=== PATIENT | male | born 1945 ===

== ENCOUNTER 2025-02-06 00:52 | Outpatient (CLI) | payer OTHER, SELFPAY ==
--- NOTE | 2025-02-06 12:30 | DI.US_ITS ---
APPROVED REPORT EXAM: Comprehensive 2D, Doppler, and color-flow Echocardiogram Patient Location: Out-Patient Litigation Support Analyst: Ricardo Burgos RDCS (AE) Indications: CAD Other Information Study Quality: Adequate Conclusion Normal left ventricular wall thickness and chamber size. EF is 60%. Wall motion is normal Normal right ventricular size and function Both atria are normal in size Aortic valve is mildly sclerotic and trileaflet without stenosis or regurgitation Mild mitral annular calcification. Mild mitral regurgitation Estimated right ventricular systolic pressure is 34 mmHg Wall motion Left Ventricle The left ventricle is normal size. The left ventricular systolic function is normal. The left ventric ular ejection fraction is within the normal range. There is normal left ventricular wall thickness. T here is normal LV segmental wall motion. There is no ventricular septal defect visualized. LVEF is 60 %. Right Ventricle The right ventricle is normal size. The right ventricular systolic function is normal. Atria The left atrium size is normal. The right atrium size is normal. The interatrial septum is intact wit h no evidence for an atrial septal defect. Aortic Valve The aortic valve is mildly sclerotic. Aortic valve is trileaflet. There is no aortic valvular stenosi s. No aortic regurgitation is present. Mitral Valve Mild mitral annular calcification. No evidence of mitral valve stenosis. Mild mitral regurgitation. Tricuspid Valve The tricuspid valve is normal in structure. There is no tricuspid valve stenosis. Trace tricuspid reg urgitation. The RVSP is 33.7 mmHg. Pulmonic Valve The pulmonary valve is normal in structure. There is no pulmonic valvular stenosis. There is no pulmo ashley valvular regurgitation. Great Vessels The aortic root is normal in size. The ascending aorta is normal in size. Aortic arch is normal in ca liber. IVC is normal in size and collapses >50% with inspiration. Pericardium There is no pericardial effusion. 2D Dimensions IVSD d PLAX 0.69 cm M: 0.6-1.2 Ao Root d 2.98 cm M: 3.1 - 3.7 LVPW d PLAX 0.74 cm M: 0.6 - 1.2 Ao Asc Diam d 3.33 cm M: 2.6 - 3.4 LVID d PLAX 5.05 cm M: 4.2 - 5.8 LVDs 3.34 cm M: 2.5 - 4.0 LV EF Teichholz 62.3 % FS 33.77 % LV EDV (Teich) 120.8 mL LV ESV (Teich) 45.5 mL Stroke Vol Index (Teich) 41.14 M-Mode TAPSE 1.61 cm (M/F) >1.7 Auto EF LV EDV A4C LV EDV A2C 98.3 mL LV EDV BP LV ESV A4C LV ESV A2C 41.4 mL LV ESV BP LVEF(%) A4C LVEF(%) A2C 57.9 % LVEF(%) BP LV SV A4C LV SV A2C 56.9 ml LV SV BP LV CO A4C LV CO A2C 3.5 L/min LV CO BP HR A4C HR A2C 61.22 BPM LV EDV Index (BP) LV Volumes - Method of Disks (Jim's) Single Plane 2D LV Volumes Biplane 2D LV Volumes LV EDV A4C 89.2 mL LV EDV BP LV ESV A4C 35.4 mL LV ESV BP LVEF(%) A4C 60.4 % LVEF(%) BP LA Volume LA Length A4C 5.7 cm LA Length A2C LA Area A4C s 14.99 cm2 LA Area A2C s LA Vol A4C A-L 33.66 mL LA Vol A2C A-L LA Vol Biplane A-L LA Vol A4C MOD 32.5 mL LA Vol A2C MOD LA Vol BP MOD RA Volume RA Area A4C 8.4 cm2 RA ESV A4C (A-L) 12.6mL RA Vol/BSA A4C A-L RA Length A4C 4.7 cm RA ESV A4C (MOD) 12.1mL LV Diastology MV E' medial 0.079 (>0.07 m/s) MV E Vmax 0.69 (0.4-1.3 m/s) MV E/E' MED 8.66 (<14) MV A Vmax 0.85 (0.4-1.3 m/s) MV E' lateral 0.071 (>0.1 m/s) E/A Ratio 0.8 MV E/E' LAT 9.63 (<14) MV E' Average 0.075 m/s MV E/E'(average) 9.12 Aortic Valve AoV Vmax 1.00 m/s LVOT Vmax 0.89 m/s AoV Peak Grad 4.0 mmHg LVOT Peak Grad 3.2 mmHg AoV Area (Vmax) 3.15 cm2 LVOT VTI 0.206 m AoV VTI 0.266 m LVOT Mean Grad 1.6 mmHg AoV Mean Luis Angel. 0.74 m/s LVOT SV 72.95 mL AoV Mean Grad 2.4 mmHg LVOT Diam s 2.10 cm AoV Area (VTI) 2.75 cm2 AV Regurg Peak Gr. 3.98 mmHg Velocity Ratio 0.89 Mitral Valve MV DT 247 (160-240 msec) Pulmonary Valve PV Vmax 0.92 (0.5-1.5 m/s) RVOT Vmax 0.51 m/s PV Peak Grad 3.4 mmHg RVOT Peak Gr. 1.0 mmHg PV Mean Luis Angel 0.64 m/s RVOT VTI 0.124 m PV Mean Grad 1.9 mmHg RVOT Mean Gr. 0.5 mmHg Tricuspid Valve RA Pressure 3.00 mmHg TR Vmax 2.77 m/s TV S' 0.13 m/s TR Peak Grad 30.6 mmHg RVSP (TR) 33.7 mmHg
== END 2025-02-06 01:12 ==
PROVIDERS: PCP Nurse Practitioner Family; Visit Provider Internal Medicine Cardiovascular Disease
DX: I25.10 Atherosclerotic heart disease of native coronary artery without angina pectoris (principal); I35.0 Nonrheumatic aortic (valve) stenosis
CPT/HCPCS: 93306